=== PATIENT | female | born 1960 | race Caucasian/White ===

== ENCOUNTER → 2018-09-19 | Outpatient (CLI) | payer BC ==
[~2018-09-19] MED LIST: ACET500; ACET500 PO; CHOL10002 PO; IBUP400 PO; NAPR500 PO; NAPR500EC; TERB250 PO
== END | disposition home or self-care (01) ==
LOC: PLD 09:20 → LAB SHORT 09:20
DX: L60.2 Onychogryphosis (principal); B35.1 Tinea unguium
CPT/HCPCS: 88305; 88312

== ENCOUNTER → 2022-03-13 | Outpatient (CLI) | payer BC ==
[2022-03-17 17:09] LABS: HPV 16 Negative (Negative); HPV 18 Negative (Negative); HPV OTHER HR TYPES Negative (Negative)
== END | disposition home or self-care (01) ==
LOC: LAB 13:18 → LAB SHORT 13:18
PROVIDERS: Internal Medicine
DX: Z12.4 Encounter for screening for malignant neoplasm of cervix (principal)
CPT/HCPCS: 87624; G0145